=== PATIENT | female | born 1940 | race Caucasian/White ===

== ENCOUNTER 2020-06-13 23:13 | Inpatient (IN) | payer MEDICARE ==
[~2020-06-13] VITALS: Ht 167.6 cm; Wt 74.8 kg
--- NOTE | ~2020-06-13 | HEMODYNAMI ---
PATIENT:RAY BRITO MEDICAL RECORD: [id number] : 38 [id number] ADMISSION DATE: 06/14/20 Generatedon:110:51 Patient name: RAY BRITO Patient #: [id number] SSN: [id number] : 1940 Date of study: 06/15/2020 Page: Of Hemodynamic Procedure Report Patient Data Patient Demographics Procedure consent was obtained First Name: RAY Gender: Female Last Name: DARYL : 1940 [facility] Initial: L Age: 80 year(s) Patient #: [id number] Race: SSN: [id number] Additional ID: [id number] Contact details [address]: [address] [place] [address] State: [place] City: [place] Zip code: [address] Past Medical History Allergies: No known allergies Admission Admission Data Admission Date: 06/14/2020 Admission Time: 1:05 Arrival Date: 06/15/2020 Arrival Time: 0:00 Admit Source: Other Insurance Payor: Medicare Room #: D.2202 Height (in.): 66 BSA: 1.84 (m2) Height (cm.): 167.64 BMI: 26.63 (kg/m2) Weight (lbs.): 164.99 Weight (kg.): 74.84 Lab Results Lab Result Date: 06/15/2020 Lab Result Time: 0:00 Biochemistry Name Units Result Min Max BUN mg/dl 15 --(--*-)-- 7 18 Creatinine mg/dl 1 --(--*-)-- 0.6 1.3 eGFR ml/min 56 *-(----)-- 90 120 NONAFRICAN CBC Name Units Result Min Max Hemoglobin g/dl 14.6 --(-*--)-- 13.5 17.5 Procedure Procedure Types Cath Procedure Diagnostic Procedure C LH w/Coronaries Sedation Charges Moderate Sedation 10-24 minutes PCI Procedure Coronary Stent Coronary Stent Initial Hemochron ACT Test Procedure Description Procedure Date Procedure Date: 06/15/2020 Procedure Start Time: 10:21 Procedure End Time: 10:46 Procedure Staff Name Function Maritza Shashi RT Scrub Ger Tran MD Performing Physician Cliff Gutierrez RN Nurse Shanae Lobato RT Monitor Procedure Data Cath Procedure Fluoroscopy Diagnostic fluoroscopy Total fluoroscopy Time: 5.5 time: 5.5 min min Diagnostic fluoroscopy Total fluoroscopy dose: 556 dose: 556 mGy mGy Contrast Material Contrast Material Type Amount (ml) Isovue 370 78 Entry Location Entry Primary Successful Side Size Upsize Upsize Entry Closure Curran ccessful Closure Location (Fr) 1 (Fr) 2 (Fr) Remarks Device Remarks Radial Right 6 Fr Mechanical artery Short Compression Femoral Right 5 Fr 6 Fr Exoseal artery Short Estimated blood loss: 10 ml Diagnostic catheters Device Type Used For End Catheter Placement DIAGNOSTIC [place] 110cm 5 Procedure Fr catheter ([id number]) MULTIPACK JL 4.0 5Fr Procedure catheter MULTIPACK 3DRC 5Fr Procedure catheter MULTIPACK Pigtail 5 Fr Procedure catheter Procedure Complications No complications Procedure Medications Medication Administration Route Dosage 0.9% NaCl I.V. 100 ml/hr Oxygen etCO2 Nasal cannula 2 l/min Heparin Flush Bag added to field 2 bags (1000units/500ml NS) Lidocaine 2% added to field 20 Radial Cocktail added to field 1 syringe (Verapamil 2mg/Nitro 400mcg/Heparin 1500units) Versed I.V. 1 mg Fentanyl I.V. 25 mcg Radial Cocktail I.A. 1 syringe (Verapamil 2mg/Nitro 400mcg/Heparin 1500units) Heparin Bolus I.V. 5000 units Integrilin (Bolus I.V. 6.2 ml 2mg/ml) Integrilin (Bolus wasted 3.8 ml 2mg/ml) Plavix P.O. 600 mg Hemodynamics Rest BSA: 1.84 (m2) HGB: 14.6 (g/dl) O2 Consumption: Estimated: 158.84 (ml/min) O2 Co nsumption indexed: Estimated:86.33 (ml/min/m) Heart Rate: 61 (bpm) Snapshots Pre Cath Intra NCS Post Cath Vital Signs Time Heart Resp SPO2 etCO2 NIBP (mmHg) Rhythm Pain Sedation Rate (ipm) (%) (mmHg) Status Level (bpm) 9:57:55 58 15 95 0 170/86(147) NSR 0 (11) 10(A) , No pain 10:02:15 57 17 95 0 142/84(125) NSR 0 (11) 10(A) , No pain 10:19:19 57 14 96 29.8 158/83(120) NSR 0 (11) 10(A) , No pain 10:23:12 66 17 94 27.6 107/95(101) NSR 0 (11) 10(A) , No pain 10:27:47 58 13 95 32.1 138/73(89) NSR 0 (11) 10(A) , No pain 10:31:46 64 13 96 34.3 136/78(110) NSR 0 (11) 9(A) , No pain 10:35:44 65 15 96 35.8 141/81(116) NSR 0 (11) 9(A) , No pain 10:39:44 69 14 97 36.6 134/79(109) NSR 0 (11) 9(A) , No pain 10:43:41 68 12 96 35.8 136/80(112) NSR 0 (11) 10(A) , No pain 10:47:35 69 16 97 33.6 145/90(124) NSR 0 (11) 10(A) , No pain Medications Time Medication Route Dose Verified Delivered Reason Not es Effectiveness by by 10:17:50 0.9% NaCl I.V. 100 Cliff Cliff Per physician ml/hr Matt Gutierrez RN RN 10:17:58 Oxygen etCO2 2 l/min Cliff Cliff for low 02 sats Nasal Lorigan Lorcarla cannula RN RN 10:18:08 Heparin Flush added 2 bags Cliff Cliff used for Bag to Lorigan Lorigan procedure (1000units/500ml field RN RN NS) 10:18:18 Lidocaine 2% added 20ml Cliff Cliff for local to vial Lorigan Lorigan anesthetic field RN RN 10:18:29 Radial Cocktail added 1 Cliff Cliff used for (Verapamil to syringe Lorigan Lorigan procedure 2mg/Nitro field RN RN 400mcg/Hepari 10:22:06 Radial Cocktail I.A. 1 Cliff Ger for (Verapamil syringe Lorigan Chelsea vasodilation 2mg/Nitro RN MD 400mcg/Hepari 10:22:39 Versed I.V. 1 mg Cliff Cliff for sedation Matt Gutierrez RN RN 10:22:48 Fentanyl I.V. 25 mcg Cliff Cliff for sedation Matt Gutierrez RN RN 10:35:06 Heparin Bolus I.V. 5000 Cliff Cliff for units Matt Gutierrez anticoagulation RN RN 10:38:26 Integrilin I.V. 6.2 ml Cliff Cliff for (Bolus 2mg/ml) Matt Gutierrez antiplatelet RN RN therapy 10:45:14 Integrilin wasted 3.8 ml Cliff Cliff to sharp's (Bolus 2mg/ml) Matt Gutierrez RN RN 10:45:33 Plavix P.O. 600 mg Cliff Cliff for Matt Gutierrez antiplatelet RN RN therapy Procedure Log Time Note 9:22:15 Diagnostic Cath Status : Urgent 9:24:22 Procedure Status Urgent Heart Cath (IP). 9:24:25 Time tracking: Regular hours (M-F 7:00 - 5:00) 9:24:30 Plan of Care:Hemodynamics will remain stable., Cardiac rhythm will remain stable., Comfort level will be maintained., Respiratory function will remain adequate., Patient/ family verbilizes understanding of procedure., Procedure tolerated without complication., Recovers from procedure without complications.. 9:25:30 Maritza Danielle RT(R) sent for patient. Start room use. 9:33:11 Lab Result : eGFR NONAFRICAN 56 ml/min 9:33:11 Lab Result : Hemoglobin 14.6 g/dl 9:33:11 Lab Result : BUN 15 mg/dl 9:33:11 Lab Result : Creatinine 1 mg/dl 9:34:46 Admit Source: Other 9:34:50 ACC Patient presents with Unstable Angina CCS Anginal Class 2--Slight limitation of ordinary activity. 9:35:04 H&P Date Dictated: 06/14/2020 Within 30 days and on chart.. 9:35:08 Family unavailable. 9:35:09 Patient NPO since Midnight. 9:35:35 Patient allergic to No known allergies 9:38:23 Arrival Date: 06/15/2020 12:00:00 AM 9:38:52 Insurance Payor : Medicare 9:39:03 Patient Height : 66 inches 9:39:08 Patient Weight : 164.99 lbs 9:39:44 Informed consent obtained and on chart 9:41:08 Lab results completed and on chart. 9:41:11 Stress Test: no; N/A ? 9:41:14 Risk of Mortality: 1.5 9:41:17 Risk of blood transfusion: 5.9 9:41:20 Risk of SAMRA: 2.4 9:41:21 Sharps counted by scrub and verified by R.N. 9:41:21 Alarms reviewed by R. N. 9:46:51 Patient received from Med/Surg to CCL 2 Alert and oriented. Tansferred to table in Supine position. 9:46:52 Correct patient and procedure confirmed by team. 9:46:52 Warm blankets applied, and mary alice hugger turned on for patient comfort. 9:46:53 ECG and BP/O2 sat monitors applied to patient. 9:46:55 Pre-op teaching completed and patient verbalized understanding. 9:46:55 Pre-procedure instructions explained to patient. 9:46:57 Is the patient allergic to Iodine/contrast media? No. 9:46:59 Was the patient premedicated? Yes 9:47:05 Is patient on blood thinner?No 9:47:07 Patient diabetic? No. 9:47:09 If diabetic: On Metformin? N/A 9:47:10 Patient not . Patient is over age 55. 9:47:11 ----Pre-sedation anethsthesia assessment.---- 9:56:48 Vital chart was started 9:56:51 Full Disclosure recording started 9:56:52 Baseline sample Acquired. 9:57:03 Rhythm: sinus rhythm , w/ ST elevation 9:57:09 Previous problem with sedation/anesthesia? No ? 9:57:11 Snore? Yes 9:57:12 Sleep apnea? Unknown 9:57:14 Deviated septum? No 9:57:15 Opens mouth fully? Yes 9:57:16 Sticks out tongue? Yes 9:57:17 Airway obstruction? No ? 9:57:19 Dentures? No ? 9:57:22 Pre procedure: left dorsailis pedis pulse 2+ Normal; easily identifiable; not easily obliterated 9:57:25 Modified Casey's test Ulnar < 7 seconds 9:57:27 Patient pain scale 0/10 ?. 9:57:32 IV patent on arrival in right antecubital with 0.9% NaCl at KVO. 9:57:36 Right Radial & Right Groin area was prepped with chlora-prep and draped in sterile fashion 9:57:40 Use device set Radial Dx or PCI 9:57:41 ACIST Syringe (25499) opened to sterile field. 9:57:42 Bag Decanter (2002) opened to sterile field. 9:57:42 Medline Cath Pack ([id number]) opened to sterile field. 9:57:43 ACIST Manifold (06046) opened to sterile field. 9:57:43 ACIST Hand Control (07030) opened to sterile field. 9:57:45 MBrace Wrist Support ([id number]) opened to sterile field. 9:57:46 EMERALD Guide Wire (932-125) opened to sterile field. 9:57:47 SHEATH 6FR RAIN ([id number]) opened to sterile field. 10:03:28 IV right wrist D/C'd due to infiltration. 10:15:28 IV started by Cliff Gutierrez RN inleft antecubital with a 20 gauge IV catheter with 0.9% NaCl at KVO. 10:15:30 --------ALL STOP TIME OUT------ 10:15:31 Final Timeout: patient, procedure, and site verified with staff and physician. All members of the team are in agreement. 10:15:35 Right Radial & Right Groin site verified by team. 10:15:38 Fire Safety Assessment: A--An alcohol-based skin anteseptic being used preoperatively., C--Open oxygen or nitrous oxide is being used., D--An ESU, laser, or fiber-optic light is being used. 10:15:41 Physical assessment completed. ASA score P 2 - A patient with mild systemic disease as per Ger Tran MD. 10:15:44 2) 60-89 Mildly reduced kidney function, and other findings (as for stage 1) point to kidney disease. 10:15:48 Maximum allowable contrast dose (3.7 X eGFR X 0.75)155 ml. 10:15:51 Sedation plan: IV Moderate Sedation Medication:Versed, Fentanyl 10:17:50 0.9% NaCl 100 ml/hr I.V. was administered by Cliff Gutierrez RN; Per physician; Verbal order read back and verified. 10:17:58 Oxygen 2 l/min etCO2 Nasal cannula was administered by Cliff Gutierrez RN; for low 02 sats; Verbal order read back and verified. 10:18:08 Heparin Flush Bag (1000units/500ml NS) 2 bags added to field was administered by Cliff Gutierrez RN; used for procedure; Verbal order read back and verified. 10:18:18 Lidocaine 2% 20ml vial added to field was administered by Cliff Gutierrez RN; for local anesthetic; Verbal order read back and verified. 10:18:29 Radial Cocktail (Verapamil 2mg/Nitro 400mcg/Heparin 1500units) 1 syringe added to field was administered by Cliff Gutierrez RN; used for procedure; Verbal order read back and verified. 10:21:00 Procedure started. 10:21:06 Local anesthetic to right radial artery with Lidocaine 2% by Ger Tran MD.INITIAL ACCESS ONLY 10:21:21 A 6 Fr Short sheath was inserted into the Right Radial artery 10:22:06 Radial Cocktail (Verapamil 2mg/Nitro 400mcg/Heparin 1500units) 1 syringe I.A. was administered by Ger Tran MD; for vasodilation; Verbal order read back and verified. 10:22:14 A DIAGNOSTIC [place] 110cm 5 Fr catheter (616131) was advanced over the wire and used for Procedure. 10:22:39 Versed 1 mg I.V. was administered by Cliff Gutierrez RN; for sedation; Verbal order read back and verified. 10:22:48 Fentanyl 25 mcg I.V. was administered by Cliff Gutierrez RN; for sedation; Verbal order read back and verified. 10:24:07 GLIDE WIRE ANGLE 260cm (MB6729) opened to sterile field. 10:24:44 unable to gain access radial proceeding to groin. 10:25:00 Local anesthetic to right femoral vein with Lidocaine 2% by Ger Tran MD.ADDITIONAL ACCESS 10:25:50 Use device set Multipack Set 10:26:01 SHEATH 5FR [place] (LGB433) opened to sterile field. 10:26:03 DIAGNOSTIC Multipack 5Fr catheter set (BX5799) opened to sterile field. 10:26:20 A 5 Fr sheath was inserted into the Right Femoral artery 10::47 A MULTIPACK JL 4.0 5Fr catheter was advanced over the wire and used for Procedure. 10:27:02 LCA angiography performed. 10:27:05 Injector settings: Ml/sec: 3, Volume: 6, 10:28:15 Catheter removed. 10:28:21 A MULTIPACK 3DRC 5Fr catheter was advanced over the wire and used for Procedure. 10:29:10 RCA angiography performed. 10:29:12 Injector settings: Ml/sec: 3, Volume: 6, 10:29:44 Catheter removed. 10:30:34 A MULTIPACK Pigtail 5 Fr catheter was advanced over the wire and used for Procedure. 10:30:40 LV gram done using MEZA 10:32:18 UNABLE TO CROSS VALVE, NO LV. 10:32:22 Catheter removed. 10:32:24 Proceeding to intervention. 10:32:31 Sheath upsized to a 6 Fr Short. 10:33:14 Use device set [place] PCI 10:33:16 SHEATH 6FR [place] (UBK674) opened to sterile field. 10:33:18 GUIDE 6FR XBLAD 3.5 catheter ([id number]) opened to sterile field. 10:33:20 INFLATOR [place] BasixCompak (DB8084) opened to sterile field. 10:33:40 [place] 300cm Axtell 2 J wire (8142533V) opened to sterile field. 10:33:50 6 Fr XBLAD 3.5 guide catheter was inserted over the wire 10:35:04 Pre PCI Site: [place] LAD has 80% stenosis. 10:35:06 Heparin Bolus 5000 units I.V. was administered by Cliff Gutierrez RN; for anticoagulation; Verbal order read back and verified. 10:35:09 [place] 300 wire advanced. 10:38:26 Integrilin (Bolus 2mg/ml) 6.2 ml I.V. was administered by Cliff Gutierrez RN; for antiplatelet therapy; Verbal order read back and verified. 10:38:49 Place stent Inflation Number: 1 A ANA OTW 3.5 x 12 stent ([id number]) was prepped and advanced across the Prox LAD 80. The stent was deployed at 14 BENJA for 0:21 (min:sec) . 10:39:19 EXOSEAL 6Fr (EX600) opened to sterile field. 10:39:20 ZEPHYR REGULAR TR BAND (002293) opened to sterile field. 10:39:24 Tegaderm 4 x 4 (1626W) opened to sterile field. 10:39:27 Stent catheter was removed intact over wire. 10:39:28 Guide catheter removed. 10:39:28 Wire removed. 10:39:40 Sheath removed intact; hemostasis achieved with Mechanical Compression to the Right Radial artery. 10:39:45 Sheath removed intact; hemostasis achieved with Exoseal to the Right Femoral artery. 10:39:50 Fluoroscopy time 05.50 minutes. 10:39:54 Fluoroscopy dose: 556 mGy 10:39:54 Flurop Dose total: 556 10:39:59 Dose Area Product 83342 mGy/cm. 10:40:03 Contrast amount:Isovue 370 78ml. 10:40:46 Maximum allowable dose exceeded? No. 10:40:47 Sharps counted by scrub and verified by R.N. 10:41:04 Procedure ended.(Physican Out) 10:41:20 Post-op/insertion site Right Femoral artery dressed using a 4 x 4 and Tegaderm. 10:41:26 Post right femoral artery:stable, soft, clean and dry 10:41:29 [place] band inflated with 10cc of air. 10:41:30 Post Procedure Pulses reassessed and unchanged 10:41:34 Post procedure: right dorsailis pedis pulse 1+ Palpable, but thready & weak; easily obliterated. 10:41:37 Post-procedure physical assessment completed. ASA score P 2 - A patient with mild systemic disease as per Ger Tran MD. 10:41:41 Post procedure rhythm: sinus rhythm 10:41:43 Estimated blood loss: 10 ml 10:42:02 Post procedure instruction explained to patient.Patient verbalizes understanding. 10:42:03 Patient needs reinforcement of post procedure teaching. 10:42:15 Procedure type changed to Cath procedure, Diagnostic procedure, LHC, LHC w/Coronaries, Sedation Charges, Moderate Sedation 10-24 minutes, PCI procedure, Coronary Stent, Coronary Stent Initial, Hemochron ACT Test 10:45:14 Integrilin (Bolus 2mg/ml) 3.8 ml wasted was administered by Cliff Gutierrez RN; to maria c's; Verbal order read back and verified. 10:45:33 Plavix 600 mg P.O. was administered by Cliff Gutierrez RN; for antiplatelet therapy; Verbal order read back and verified. 10:45:43 Procedure and supply charges have been captured, reviewed, submitted and are correct. 10:45:46 Procedure Complication : No complications 10:45:50 [facility] Findings: MVD- PCI performed (see procedure note) 10:45:53 Operative report dictated upon procedure completion. 10:45:55 See physician's report for complete and final results. 10:45:58 Report given to Pre/Post Procedure Room. 10:46:01 Patient transfered to Pre/Post Procedure Room with Bed. 10:46:03 Full Disclosure recording stopped 10:46:03 Procedure ended. 10:46:17 ACC-PCI Only Patient was given prescriptions, or instructed by Ger Tran MD to start/continue the following medications upon discharge: Plavix 10:46:19 End room use (Document Last) 10:47:36 ACT drawn and resulted at 195 seconds. (normal therapeutic range 180-240 seconds). 10:49:19 FEMSTOP Gold (O80257) opened to sterile field. 10:50:23 Femstop placed over the right femoral artery at 142 mmHg. Hemostasis achieved. Intervention Summary Intervention Notes Time ActionType Lesion and Equipment Action# Pressure Duration Attributes Used 10:38:49 Place stent Prox LAD ANA OTW 3.5 1 14 00:21 x 12 stent ([id number]) Device Usage Item Name Manufacture Quantity Catalog Hospital Part Current Mini mal Lot# / Number Charge Number Stock Stock Serial# Code ACIST Syringe Acist 1 88894 847074 604108 [id number] 20 (58816) Medical Systems Inc Medline Cath Medline 1 [id number] 815389 53314 598575 5 Pack ([id number]) Bag Decanter Microtek 1 2001S 565566 29345 658428 5 () Medical Inc. ACIST Hand Acist 1 76322 563014 849461 992435 5 Control Medical (58841) Systems Inc ACIST Acist 1 79053 683363 965995 814001 5 Manifold Medical (64862) Systems Inc MBrace Wrist Advanced 1 140-0250-00 504160 49933 489552 5 Support Vascular (836207298) Dynamics EMERALD Guide Cardinal 1 502-455 669453 206129 563650 5 Wire Health (502455) SHEATH 6FR Cardinal 1 7480230 147188 1114434 556023 5 RAIN [facility] (3798394) DIAGNOSTIC Terumo 1 40-5013 334705 107722 792492 5 [place] 110cm 5 Fr catheter (952513) SHEATH 5FR Terumo 1 NLZ847 221935 004290 427349 5 [place] (AFD307) DIAGNOSTIC Cardinal 1 CT2233 420660 16907 882683 30 Multipack 5Fr Health catheter set (QN0481) MULTIPACK JL Cardinal 1 853451 5 4.0 5Fr Health catheter MULTIPACK Cardinal 1 379613 5 3DRC 5Fr Health catheter MULTIPACK Cardinal 1 088364 5 Pigtail 5 Fr Health catheter SHEATH 6FR Terumo 1 FPG734 732993 352874 209006 40 [place] (DWG839) GUIDE 6FR Cardinal 1 01899747 734982 044140 186647 10 XBLAD 3.5 Health catheter (59070422) INFLATOR [facility] 1 MY7533 297697 730063 901207 15 [facility] Medical BasixCompak (UT3478) BMW 300cm Sepulveda 1 [id number] 415859 301480 492719 5 Axtell 2 J Vascular wire (0677355Y) ANA OTW 3.5 Medtronic 1 [id number] 434008 8799647 521861 5 [id number] x 12 stent ([id number]) EXOSEAL 6Fr Cardinal 1 EX600 849640 340494 201082 10 (EX600) Health Tegaderm 4 x 3M 1 1626W 401072 069848 460254 5 4 (1626W) GLIDE WIRE Terumo 1 JA7197 764519 824221 455485 5 ANGLE 260cm (NI6192) ZEPHYR Cardinal 1 787785 998889 2880821 712840 5 REGULAR TR Health BAND (336765) FEMSTOP Gold St Yuriy 1 S07784 592614 082529 228241 5 ([id number]) Signature Audit [place] Stage Time Signature Unsigned Intra-Procedure 06/15/2020 Shanae Lobato 10:47:21 AM RT(R) Intra-Procedure 06/15/2020 Cliff 10:48:31 AM Lorigan RN Intra-Procedure 06/15/2020 Shanae Lobato 10:50:34 AM RT(R) Intra-Procedure 06/15/2020 Ger Young 10:51:00 AM [place] Performing Physician : Signature : Ger Tran MD Date : Time : Nurse : Cliff Gutierrez Signature : RN Date : Time : Monitor : Shanae Lobato Signature : RT Date : Time : [address] [place] [address]
--- NOTE | ~2020-06-13 | OP ---
PATIENT NAME: RAY BRITO MEDICAL RECORD: [id number] :38 LOCATION:[facility] ADMISSION DATE:06/14/20 SURGEON: KRYSTAL FINLEY MD DATE OF OPERATION: 06/15/2020 PROCEDURE: Left heart catheterization, selective coronary angiography, right femoral approach, approach radial secondary to tortuosity. CATHETERS: A 5-Kittitian, 5/4 left and right [place], 5/4 pig. The procedure was well tolerated, the patient returned to the gar, sheath removed, ExoSeal device placed. FINDINGS: Left ventriculography not performed. LV function normal via echo. CORONARY ANATOMY: LEFT MAIN: Left main is free of disease. LAD: LAD at first takeoff of the first diagonal has a very discrete 80% stenosis with haziness, obviously infarct related artery. CIRCUMFLEX: Free of disease. RIGHT CORONARY ARTERY: Dominant artery, gives rise to PDA, free of disease. 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 PLAN: Intervention momentarily. DESCRIPTION OF PROCEDURE: A 5-Kittitian sheath was exchanged for a 6-Kittitian sheath. XB LAD guide catheter provided excellent guide catheter support. Stent deployed was a 3.5 x 12 [place] drug-eluting stent up to 14 atmosphere for 45 seconds. Final angiography showed excellent resolution of 80% hazy stenosis. No significant residual and a nice step down distally. AZRA flow was 3 throughout the procedure. Heparin, Integrilin used during the case. Plavix loaded in the lab. TRANSINT:[id number] Voice Confirmation ID: [id number] DOCUMENT ID: [id number] KRYSTAL FINLEY MD CC: [id number] DICTATION DATE: 06/15/20 1058 SUBWAREHOUSE SUPERVISOR: 06/15/20 1124 ADM IN [facility] [address] [id number]
[2020-06-13 23:55] LABS: CALC OSMOLALITY 269 mosm/kg (275-300); CALCIUM 9.2 mg/dL (8.5-10.1); CARBON DIOXIDE 24.1 mmol/L (21.0-32.0); CHLORIDE - SERUM 94 mmol/L (98-107); CREATININE - SERUM 1.1 mg/dL (0.6-1.3); GLUCOSE 155 mg/dL (74-106); HEMATOCRIT 42.6 % (36.0-48.0); HEMOGLOBIN 14.1 g/dL (12-16); LYMPHOCYTES 39.9 % (15-50); MCH 28.4 pg (26.0-34.0); MCHC 33.1 g/dL (31.0-37.0); MCV 85.9 fL (80.0-100.0); MEAN PLATELET VOLUME 9.7 fL (7.4-10.4); PLATELET COUNT 246 10x3/uL (130-400); POTASSIUM - SERUM 3.6 mmol/L (3.5-5.1); RBC 4.96 10x6/uL (4.00-5.40); RDW 14.2 % (11.5-14.5); SODIUM 132 mmol/L (136-145); UREA NITROGEN 18 mg/dL (7-18); WBC 7.7 10x3/uL (4.8-10.8); eGFR NON AFRICAN AMERICAN 50 mL/min (90-120)
[2020-06-14 00:06] LABS: APTT 28.6 SECONDS (22.8-39.4); INR 1.13 (0.85-1.17); PROTIME 13.4 SECONDS (11.6-15.0)
[2020-06-14 00:20] LABS: ALBUMIN 3.9 g/dL (3.4-5.0); ALKALINE PHOSPHATASE 78 U/L (30-120); ALT (SGPT) 21 U/L (10-68); BILIRUBIN - TOTAL 0.33 mg/dL (0.2-1.3); CKMB 1.7 U/L (0.0-3.6); CREATINE KINASE 96 UL (21-215); MAGNESIUM - SERUM 1.9 mg/dL (1.8-2.4); PROTEIN - SERUM 8.3 g/dL (6.4-8.2)
[2020-06-14 00:21] LABS: TROPONIN-I 0.214 ng/mL (0.000-0.060)
[2020-06-14 00:54] LABS: BILIRUBIN NEGATIVE (NEGATIVE); KETONE NEGATIVE (NEGATIVE); NITRITE NEGATIVE (NEGATIVE); UROBILINOGEN NORMAL mg/dL (< 2)
[2020-06-14 00:56] LABS: BACTERIA FEW HPF (NONE SEEN); SQUAMOUS EPITHELIAL 0-5 HPF (0-4); WHITE CELLS - URINE 0-5 HPF (0-4)
[2020-06-14] MEDS ORDERED: ATIVAN0.5 MG PO (01:30)
[2020-06-14] MEDS ORDERED: K-TAB10 MEQ PO (01:31)
[2020-06-14] MEDS ORDERED: LOTENSIN 10 MG10 MG PO (01:32)
[2020-06-14] MEDS ORDERED: PROCARDIA XL60 MG (01:33)
[2020-06-14] MEDS ORDERED: TOPROL XL100 MG PO (01:34)
[2020-06-14 01:35] VITALS: BP 187/100; BMI 26.7
--- NOTE | 2020-06-14 01:35 | NUR ---
RECEIVED PT FROM ER VIA WHEELCHAIR. PT SITTING UP IN BED A&O X4. PIV TO RIGHT AC PATENT AND INFUSING, NO REDNESS OR SWELLING. HEART SOUNDS S1,S2 MURMUR NOTED. PT ABLE TO AMBULATE AD SALMA. EDUCATED PT ON ISP, CL AND NEEDS, VERBALIZED UNDERSTANDING. BED LOW, CL IN REACH.
--- NOTE | 2020-06-14 02:18 | NUR ---
PAGED DR ECKERT IN REGARDS TO PTS BP 187/100. PT C/O OF NEEDED ANXIETY MEDICATION. WILL CONTINUE TO MONITOR.
[2020-06-14 04:00] VITALS: BP 134/88
[2020-06-14 06:18] LABS: BASOPHILS 0.4 % (0-2); EOSINOPHILS 0.9 % (0-7); HEMATOCRIT 41.6 % (36.0-48.0); HEMOGLOBIN 14.1 g/dL (12-16); IMMATURE GRANULOCYTES 0.3 % (0-5); LYMPHOCYTE ABS# 1.88 10x3/uL (1.18-3.74); LYMPHOCYTES 26.7 % (15-50); MCH 28.4 pg (26.0-34.0); MCHC 33.9 g/dL (31.0-37.0); MEAN PLATELET VOLUME 10.3 fL (7.4-10.4); MONOCYTES 9.9 % (2-11); NEUTROPHIL ABS# 4.35 10x3/uL (1.56-6.13); NEUTROPHILS 61.8 % (40-80); PLATELET COUNT 244 10x3/uL (130-400); RBC 4.96 10x6/uL (4.00-5.40)
[2020-06-14 06:33] LABS: MCV 83.9 fL (80.0-100.0)
[2020-06-14 06:55] LABS: ALBUMIN 3.8 g/dL (3.4-5.0); BILIRUBIN - TOTAL 0.49 mg/dL (0.2-1.3); CALCIUM 9.3 mg/dL (8.5-10.1); CARBON DIOXIDE 24.8 mmol/L (21.0-32.0); PROTEIN - SERUM 7.8 g/dL (6.4-8.2)
[2020-06-14 06:56] LABS: ANION GAP 13.4 mmol/L (8-16); CREATININE - SERUM 0.8 mg/dL (0.6-1.3); POTASSIUM - SERUM 4.2 mmol/L (3.5-5.1); TROPONIN-I 2.594 ng/mL (0.000-0.060)
--- NOTE | 2020-06-14 07:30 | NUR ---
REC'D IN BED AWAKE. RESP EVEN AND UNLABORED WITH NO DISTRESS NOTED. CAN EXPRESS NEEDS AND WANTS. NO C/O NOTED OR VOICED. ASSESSMENT COMPLETED. C/L IN REACH AT BEDSIDE.
[2020-06-14 08:38] VITALS: BP 139/70
--- NOTE | 2020-06-14 12:11 | NUR ---
I have reviewed this patient and I concur with the Shift Assessment completed by the Licensed Practical Nurse today this shift.
[2020-06-14 12:15] VITALS: BP 148/72
[2020-06-14 13:11] VITALS: BMI 26.6
[2020-06-14 15:49] VITALS: BP 160/80
[2020-06-14 17:49] VITALS: Ht 167.6 cm; Wt 74.8 kg
[2020-06-14 18:00] LABS: BASOPHILS 0.6 % (0-2); EOSINOPHILS 1.4 % (0-7); HEMATOCRIT 41.7 % (36.0-48.0); IMMATURE GRANULOCYTES 0.1 % (0-5); LYMPHOCYTE ABS# 2.17 10x3/uL (1.18-3.74); LYMPHOCYTES 30.4 % (15-50); MCH 28.2 pg (26.0-34.0); MCHC 33.6 g/dL (31.0-37.0); MCV 84.1 fL (80.0-100.0); MONOCYTES 10.5 % (2-11); NEUTROPHIL ABS# 4.06 10x3/uL (1.56-6.13); PLATELET COUNT 216 10x3/uL (130-400); RBC 4.96 10x6/uL (4.00-5.40); RDW 13.8 % (11.5-14.5); WBC 7.1 10x3/uL (4.8-10.8)
[2020-06-14 18:15] LABS: ANION GAP 14.5 mmol/L (8-16); CALCIUM 8.9 mg/dL (8.5-10.1); CARBON DIOXIDE 23.3 mmol/L (21.0-32.0); CHOL - HDL RATIO 3.9 ratio (2.3-4.1); CREATININE - SERUM 0.9 mg/dL (0.6-1.3); LDL-HDL RATIO 2.5 ratio (1.5-3.5); POTASSIUM - SERUM 3.8 mmol/L (3.5-5.1)
--- NOTE | 2020-06-14 19:45 | NUR ---
RECEIVED BEDSIDE REPORT. PT LAYING IN BED A&O X4. PIV TO RIGHT FOREARM, PATENT AND S/L, NO REDNESS OR SWELLING. PT ABLE TO AMBULATE AD SALMA. TELEMETRY IN PLACE, 60 SR. EDUCATED PT ON CL AND NEEDS, VERBALIZED UNDERSTANDING. BED LOW, CL IN REACH.
[2020-06-14 20:00] VITALS: BP 164/86
[2020-06-15 04:00] VITALS: BP 158/82
[2020-06-15 04:30] LABS: BASOPHILS 0.3 % (0-2); EOSINOPHILS 2.3 % (0-7); HEMATOCRIT 42.7 % (36.0-48.0); HEMOGLOBIN 14.6 g/dL (12-16); IMMATURE GRANULOCYTES 0.2 % (0-5); LYMPHOCYTE ABS# 2.08 10x3/uL (1.18-3.74); LYMPHOCYTES 32.4 % (15-50); MCH 28.8 pg (26.0-34.0); MCHC 34.2 g/dL (31.0-37.0); MCV 84.2 fL (80.0-100.0); MEAN PLATELET VOLUME 9.3 fL (7.4-10.4); MONOCYTES 13.1 % (2-11); NEUTROPHIL ABS# 3.32 10x3/uL (1.56-6.13); NEUTROPHILS 51.7 % (40-80); PLATELET COUNT 234 10x3/uL (130-400); RBC 5.07 10x6/uL (4.00-5.40); RDW 13.9 % (11.5-14.5); WBC 6.4 10x3/uL (4.8-10.8)
[2020-06-15 04:43] LABS: ALBUMIN 3.8 g/dL (3.4-5.0); ANION GAP 14.1 mmol/L (8-16); BILIRUBIN - TOTAL 0.7 mg/dL (0.2-1.3); CALCIUM 9.4 mg/dL (8.5-10.1); CARBON DIOXIDE 24.2 mmol/L (21.0-32.0); MAGNESIUM - SERUM 2.1 mg/dL (1.8-2.4); POTASSIUM - SERUM 4.3 mmol/L (3.5-5.1); PROTEIN - SERUM 8.2 g/dL (6.4-8.2)
[2020-06-15 09:10] VITALS: BP 151/73
--- NOTE | 2020-06-15 10:01 | CN ---
PATIENT NAME:RAY BRITO MEDICAL RECORD: [id number] : 38 LOCATION:[id number] ADMIT DATE: 06/14/20 ACCOUNT: [id number] CONSULTING PHYSICIAN: KRYSTAL FINLEY MD REFERRING PHYSICIAN: FRANKI REGALADO MD DATE OF CONSULTATION: 06/14/2020 CARDIOLOGY CONSULTATION HISTORY OF PRESENT ILLNESS: An 80-year-old female with history of hypertension, hyperlipidemia, admitted with right arm weakness and numbness. She had a feeling of apprehension or anxiety in her chest. She has been having these symptoms intermittently over the past by her report a couple of months. Also felt some numbness, tingling in the right leg. Subsequently, found to have minimal atherosclerotic disease in her carotid arteries. A CT was normal. Has had elevated troponin at this point consistent with NSTEMI. We are asked to see her concerning her cardiovascular status. PAST MEDICAL HISTORY: Includes: 1. History of hypertension. 2. Hyperlipidemia. 3. Anxiety. ALLERGIES: None known. MEDICATIONS: Include: 1. Ativan 0.5 p.o. t.i.d. p.r.n. 2. Metoprolol 50 mg p.o. b.i.d. 3. Nifedipine 60 mg p.o. q. day. 4. Benazepril 10 mg p.o. q. day. SOCIAL HISTORY: Nonsmoker, nondrinker. She takes care of all her LDLs. Does try to walk on a regular basis. REVIEW OF SYSTEMS: The patient reports easy bruising but reports no swollen glands. The patient reports no fever, no night sweats, no significant weight gain, no significant weight loss. No significant exercise tolerance. The patient reports no dry eyes, no irritation, no vision change. Patient reports no difficulty hearing and no ear pain. Patient reports no frequent nose bleeds or nose and sinus problems. Patient reports on arm pain on exertion. No shortness of breath while lying down. No history of heart murmur. Patient reports no cough, no wheezing or coughing up blood. Patient reports no abdominal pain, no vomiting. Normal appetite. No diarrhea and not vomiting blood. No nausea and no constipation. Patient reports no incontinence. No difficulty urinating. No hematuria. No increased frequency. Patient reports no muscle aches. No weakness, no arthralgias, no back pain. No swelling of the extremities. Patient reports no abnormal mole, no jaundice, no rashes. Reports no loss of consciousness. No weakness and no numbness. No seizures, dizziness, or headaches. The patient reports no depression, no sleep disturbance, feeling safe in a relationship and no alcohol abuse. Patient reports on fatigue. Reports no runny nose or sinus pressure. No itching, no hives, and no frequent sneezing. PHYSICAL EXAMINATION: GENERAL: Pleasant, in no acute distress, appears stated age. CONSULT REPORT [id number] DARYLRAY Bradley VITAL SIGNS: 148/72, pulse 63 and regular. HEENT: Normocephalic, atraumatic. NECK: No JVD or bruit. HEART: Regular. II/ systolic ejection murmur. LUNGS: Good air excursion. ABDOMEN: Soft and nontender. EXTREMITIES: Pulses present, 2+. There is no edema. DIAGNOSTIC DATA: EKG shows nonspecific ST-T changes in the high lateral leads. IMPRESSION: Non-ST segment elevation myocardial infarction. PLAN: At this point in time, plan for angiography and intervention based on the above. TRANSINT:[id number] Voice Confirmation ID: [id number] DOCUMENT ID: [id number] KRYSTAL FINLEY MD at 1001 CC: [id number] DICTATION DATE: 06/14/20 [address]ER: 06/14/202134 ADM IN [facility] [address] [id number]
--- NOTE | 2020-06-15 11:07 | NUR ---
PT ARRIVED BY STRETCHER. PLACED ON MONITORS. ASSESSMENT COMPLETED. VSS AT THIS TIME. CALL LIGHT WITHIN REACH. RIGHT RADIAL Z BAND REPOSITIONED AT BEDSIDE WITH JESSICA Clarke RN. SMALL HEMATOMA NOTED. REPOSITIONED AND FILLED BACK WITH 10CC OF AIR. TOLERATED WELL. WILL MONITOR FOR BLEEDING. RIGHT GROIN WITH FEMSTOP IN PLACE. PRESSURE AT 113mmHg. RIGHT PEDAL PULSE PALPALBE.
--- NOTE | 2020-06-15 11:20 | NUR ---
RIGHT WRIST Z BAND IN PLACE. NO BLEEDING AND NO NEW HEMATOMA NOTED. RIGHT HAND IS WARM TO TOUCH AND CAP REFILL <3 SECS. RIGHT GROIN WITH FEMSTOP IN PLACE. NO CHANGES TO PRESSURE. NO BLEEDING/HEMATOMA NOTED. RIGHT LEG WARM TO TOUCH. RIGHT PEDAL PULSE PALPABLE. CALL LIGHT WITHIN REACH. PT DENIES NAUSEA. TOLERATING SIPS OF WATER.
--- NOTE | 2020-06-15 12:00 | NUR ---
PT GIVEN MORNING BP MEDS. BP 161/111 AT THIS TIME. HR 63. PT ALERT AND ORIENTED. DENIES NAUSEA. TOLERATING SIPS OF WATER. PT HAVING DISCOMFORT IN HER HIPS. RIGHT GROIN FEMSTOP IN PLACE. NO HEMATOMA/BLEEDING NOTED. PT REPOSITIONED FOR COMFORT. FEMSTOP DECREASED TO 100mmHg. TOLERATING WELL. RIGHT RADIAL Z BAND IN PLACE. NO BLEEDING OR NEW HEMATOMA NOTED. CALL LIGHT WITHIN REACH. RIGHT PEDAL PULSE PALPABLE AT THIS TIME.
--- NOTE | 2020-06-15 12:20 | NUR ---
FEMSTOP TO RIGHT GROIN DECREASED TO 80mmHg. TOLERATING WELL. RIGHT PEDAL PULSE PALPABLE. RIGHT WRIST Z BAND IN PLACE. NO BLEEDING/HEMATOMA NOTED.
--- NOTE | 2020-06-15 12:40 | NUR ---
FEMSTOP WEANED TO 60mmHg. TOLERATING WELL. PT REPORTS THAT HER HIP DISCOMFORT HAS IMPROVED. RIGHT PEDAL PULSE PALPABLE. RIGHT WRIST Z BAND IN PLACE. NO BLEEDING/HEMATOMA NOTED.
--- NOTE | 2020-06-15 12:58 | NUR ---
FEMSTOP WEANED DOWN TO 30mmHg. TOLERATING WELL. VSS. NO S/S OF HEMATOMA NOTED. RIGHT WRIST Z BAND IN PLACE. NO BLEEDING/HEMATOMA NOTED. PT WATCHING TELEVISION. DENIES NAUSEA. TOLERATING SIPS OF WATER.
--- NOTE | 2020-06-15 13:15 | NUR ---
FEMSTOP WEANED OFF. TOLERATED WELL. RIGHT GROIN WITH NO S/S OF HEMATOMA NOTED. RIGHT RADIAL Z BAND IN PLACE. NO BLEEDING/HEMATOMA NOTED. PT RESTING COMFORTABLY.
[2020-06-15] MEDS ORDERED: ASPIRIN EC325 MG PO (13:57)
--- NOTE | 2020-06-15 14:00 | NUR ---
RIGHT GROIN DRESSING APPLIED. NO BLEEDING/HEMATOMA NOTED TO RIGHT GROIN SITE. 2cc OF AIR REMOVED FROM Z BAND. NO BLEEDING/HEMATOMA NOTED. PT'S VSS AT THIS TIME. HEAD OF BED INC TO 30 DEGREES. TOLERATED WELL. SET UP WITH DRINK, PUDDING, AND APPLE SAUCE. PT DENIES NAUSES/PAIN AT THIS TIME. CALL LIGHT WITHIN REACH. NO OTHER NEEDS AT THIS TIME.
--- NOTE | 2020-06-15 14:15 | NUR ---
4cc OF AIR REMOVED FROM Z BAND. NO BLEEDING/HEMATOMA NOTED. CALL LIGHT WITHIN REACH. RIGHT GROIN DRESSING C/D/I NO S/S OF HEMATOMA NOTED.
--- NOTE | 2020-06-15 14:30 | NUR ---
4cc OF AIR REMOVED FROM Z BAND. NO BLEEDING/HEMATOMA NOTED. CALL LIGHT WITHIN REACH. VSS AT THIS TIME.
[2020-06-15] MEDS ORDERED: PLAVIX75 MG PO (14:41)
[2020-06-15] MEDS ORDERED: LIPITOR10 MG PO (14:41)
--- NOTE | 2020-06-15 14:42 | NUR ---
Z BAND REMOVED AND DRESSING APPLIED. PT TOLERATED WELL. REPORT CALLED TO MARIA DE JESUS ON MED/SURG. CALLED PT'S SON DOWN IN ROOM AND UPDATED HIM ON PLAN OF CARE.
--- NOTE | 2020-06-15 15:00 | NUR ---
PT TAKEN DOWN TO ROOM BY BED. HANDOFF REPORT GIVEN TO MARIA DE JESUS. PT HAS POOL NURSE IN PLACE. PT'S SON AT BEDSIDE. RIGHT WRIST AND RIGHT GROIN DRESSING C/D/I. NO S/S OF HEMATOMA NOTED.
--- NOTE | 2020-06-15 15:06 | NUR ---
REC'D BACK FROM RECOVERY AT THIS TIME AWAKE AND ALERT. RESP EVEN AND UNLABORED WITH NO DISTRESS NOTED OR VOICED. DRESSING AND BRACE NOTED TO RIGHT WRIST. DRESSING NOTED TO RIGHT GROIN WELL WHICH IS CLEAN DRY AND INTACT. NO C/O NOTED OR VOICED AT THIS TIME. C/L AND SON AT BEDSIDE.
--- NOTE | 2020-06-15 16:28 | NUR ---
DC HOME AT THIS TIME WITH ALL PERSONAL BELONGING ALSO VOICES UNDERSTANDING OF DC INSTRUCTION. STABLE UPON DEPARTURE.
== END 2020-06-15 16:29 | disposition home or self-care (01) | DRG 246 ==
LOC: D.ER 23:13 → D.MS 06-14 01:05
PROVIDERS: Family Medicine; Internal Medicine Interventional Cardiology; ADMIT Family Medicine; ATTEND Family Medicine
PROC: B2151ZZ Fluoroscopy of Left Heart using Low Osmolar Contrast (ICD-10-PCS; 2020-06-15)
PROC: 4A023N7 Measurement of Cardiac Sampling and Pressure, Left Heart, Percutaneous Approach (ICD-10-PCS; 2020-06-15)
PROC: 027034Z Dilation of Coronary Artery, One Artery with Drug-eluting Intraluminal Device, Percutaneous Approach (ICD-10-PCS; principal; 2020-06-15 09:25)
PROC: B2111ZZ Fluoroscopy of Multiple Coronary Arteries using Low Osmolar Contrast (ICD-10-PCS; 2020-06-15 09:25)
DX: I25.10 Atherosclerotic heart disease of native coronary artery without angina pectoris (principal); I21.4 Non-ST elevation (NSTEMI) myocardial infarction; G45.9 Transient cerebral ischemic attack, unspecified; I10 Essential (primary) hypertension; E78.5 Hyperlipidemia, unspecified